=== PATIENT | male | born 1990 | race American Indian/Alaskan Native ===

== ENCOUNTER 2018-05-17 10:15 | Emergency (ER) | payer BC ==
--- NOTE | 2018-05-17 12:40 | Emergency Department Report ---
- General Chief Complaint: Skin/Abscess/Foreign Body Stated Complaint: PACKING REMOVAL Time Seen by Provider: 05/17/18 12:37 Source: patient Mode of arrival: Ambulatory Limitations: No Limitations - History of Present Illness Initial Comments: Patient is a 28-year-old male who is presenting for wound recheck. Patient had abscess I&D a week ago with packing. Patient here for recheck. Patient states he still has antibiotics he still taking them. States his pain is much improved. - Related Data Previous Rx's Medication Instructions Recorded Last Taken Type Acetaminophen/Codeine [Tylenol 1 tab PO Q6H PRN #12 tab 05/10/18 Unknown Rx /Codeine # 3 tab] Naproxen [Naprosyn] 500 mg PO TID #15 tablet 05/10/18 Unknown Rx Sulfamethoxazole/Trimethoprim 1 each PO BID #20 tablet 05/10/18 Unknown Rx [Bactrim DS TAB] Sulfamethoxazole/Trimethoprim 1 each PO BID #6 tablet 05/17/18 Unknown Rx [Bactrim DS TAB] Allergies Allergy/AdvReac Type Severity Reaction Status Date / Time No Known Allergies Allergy Unverified 05/10/18 17:18 ED Review of Systems ROS: Stated complaint: PACKING REMOVAL Other details as noted in HPI Comment: All other systems reviewed and negative ED Past Medical Hx - Past Medical History Previous Medical History?: No - Surgical History Past Surgical History?: Yes Additional Surgical History: thigh surgery - Social History Smoking Status: Current Every Day Smoker Substance Use Type: None - Medications Home Medications: Home Medications Medication Instructions Recorded Confirmed Last Taken Type Acetaminophen/Codeine [Tylenol 1 tab PO Q6H PRN #12 tab 05/10/18 Unknown Rx /Codeine # 3 tab] Naproxen [Naprosyn] 500 mg PO TID #15 tablet 05/10/18 Unknown Rx Sulfamethoxazole/Trimethoprim 1 each PO BID #20 tablet 05/10/18 Unknown Rx [Bactrim DS TAB] Sulfamethoxazole/Trimethoprim 1 each PO BID #6 tablet 05/17/18 Unknown Rx [Bactrim DS TAB] ED Physical Exam - General Limitations: No Limitations General appearance: alert, in no apparent distress - Head Head exam: Present: atraumatic, normocephalic - Eye Eye exam: Present: normal appearance - Psychiatric Psychiatric exam: Present: normal affect, normal mood - Skin Skin exam: Present: other (patient has a wound that has iodoform gauze coming from it. After the form gauze was removed patient has good granulation tissue and open wound. There is no further purulent drainage) ED Course Vital Signs 05/17/18 10:18 Temperature 97.7 F Pulse Rate 66 Respiratory 18 Rate Blood Pressure 118/78 [Right] O2 Sat by Pulse 98 Oximetry ED Medical Decision Making - Medical Decision Making Patient's continue with wound care patient discharged home. No further packing is necessary. Critical care attestation.: If time is entered above; I have spent that time in minutes in the direct care of this critically ill patient, excluding procedure time. ED Disposition Clinical Impression: Encounter for wound re-check Disposition: DC-01 TO HOME OR SELFCARE Is pt being admited?: No Does the pt Need Aspirin: No Condition: Stable Referrals: ADRIÁN FRAIRE MD [Primary Care Provider] - 3-5 Days Time of Disposition: 12:40
[2018-05-17 13:03] VITALS: BP 112/77
== END 2018-05-17 13:03 | disposition home or self-care (01) ==
LOC: ED 10:15
DX: Z48.01 Encounter for change or removal of surgical wound dressing (principal)